=== PATIENT | female | born 1960 | race Caucasian/White ===

== ENCOUNTER → 2017-08-12 | Outpatient (CLI) | payer OTHER ==
[2016-03-01 19:25] VITALS: BP 150/94
--- NOTE | 2017-08-12 15:42 | KCIC ---
EXAM: Pelvic sonogram. HISTORY: Ovarian cyst. TECHNIQUE: Transabdominal and transvaginal sonographic imaging of the pelvis was performed. COMPARISON: CT dated 07/17/2017. FINDINGS: The uterus is surgically absent. There is a large complex right adnexal cyst with internal septations measuring 4.1 cm in maximum dimension. There is normal blood flow within the surrounding right ovarian parenchyma. The combination of the cyst and right ovarian parenchyma measure 6.7 x 5.4 x 3.7 cm. The left ovary is absent. IMPRESSION: 1. Large complex cystic lesion with internal septations within the right ovary measuring 4.1 cm. The imaging appearance is concerning for a cystic neoplasm in this postmenopausal patient. Surgical consultation and correlation with a CA-125 serum tumor marker level is recommended. 2. Surgically absent uterus and left ovary. Electronically signed by: Danii Hamilton MD (08/12/2017 3:39 PM) [id number]
== END | disposition home or self-care (01) ==
LOC: KCIC US 14:02
PROVIDERS: ATTEND Obstetrics & Gynecology
DX: N83.201 Unspecified ovarian cyst, right side (principal); N95.9 Unspecified menopausal and perimenopausal disorder; R94.8 Abnormal results of function studies of other organs and systems
CPT/HCPCS: 76830; 76856